=== PATIENT | male | born 1995 | race Caucasian/White ===

== ENCOUNTER 2021-10-20 16:54 | Emergency (ER) | payer SELFPAY ==
[2021-10-20] VITALS (7 sets, daily range): BP systolic 133–150; BP diastolic 75–99; PULSE 109–137; RESP 16–24; TEMP 37.1–39; O2SAT 95–98
--- NOTE | 2021-10-20 17:22 | ECG_ITS ---
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 Measurements Intervals [place] Rate: 140 P: 54 ME: 134 QRS: 34 QRSD: 75 T: 52 QT: 308 QTc: 471 Interpretive Statements SINUS TACHYCARDIA, POSSIBLE ATRIAL FLUTTER NONSPECIFIC T-WAVE ABNORMALITY ABNORMAL RHYTHM ECG No previous ECG available for comparison Electronically Signed On 10-20-2021 19:59:03 MORTGAGE LOAN CLOSER by Rene Herrera M.D. [id number]
--- NOTE | 2021-10-20 17:22 | XRR_ITS ---
PROCEDURE INFORMATION: Exam: XR Chest Exam date and time: 10/20/2021 5:22 PM Age: 26 years old Clinical indication: Other: Rapid heart rate; Additional info: Dyspnea/cough, rapid heart rate since 10am, 102 fever TECHNIQUE: Imaging protocol: XR of the chest. Views: 1 view. COMPARISON: No relevant prior studies available. FINDINGS: Lungs: No consolidation. Pleural spaces: No pleural effusion. No pneumothorax. Heart/Mediastinum: No cardiomegaly. Bones/joints: Unremarkable. XR/XR chest 1V portable [id number] IMPRESSION: No acute abnormality demonstrated.
--- NOTE | 2021-10-20 17:25 | W.ED.ARRPALP ---
Documented by User: Con Reaves DO 10/20/21 17:30 HPI - Arrhythmia/Palpitations General: Chief Complaint: Arrhythmia/Palpitations Stated Complaint: ANXIETY/ PANIC ATTACK Time Seen by Provider: 10/20/21 16:56 History of Present Illness: HPI narrative: 6-year-old male presents to the emergency room with a rapid heart rate. He has had chills fever generally not felt well myalgias. Patient admits to regular drinking up to a case per day. This all began around 1030 this morning. His has been sick as well she tested positive for strep but was not tested for COVID. He denies any diarrhea no cough or shortness of breath no chest pain no abdominal pain no dysuria urgency or frequency denies any abscess boils or skin lesions. MD complaint: rapid heart beat and heart racing Onset (ago): hour(s) Duration: constant Severity: mild Associated symptoms: Reports anxiety and muscle cramps; Deny cough, diaphoresis, nausea, paresthesias, pre-syncope, sense of impending doom, short of breath, syncope or vomiting Review of Systems Const: Denies: diaphoresis ENMT: Denies: throat pain, ear or mastoid pain, nasal discharge or nasal congestion Card: Denies: syncope or pre-syncope Resp: Denies: dyspnea, productive cough or non-productive cough GI: Denies: nausea or vomiting : Denies: flank pain, dysuria, urinary frequency or urinary urgency Musc: Reports: muscle cramps Skin/Breast: Denies: rash or pruritus Psych: Reports: anxiety PFS ED PFSH: Medical History Alcohol abuse Surgical History No significant past surgical history Social History Smoking and tobacco status: never smoked Alcohol intake: current Alcohol intake frequency: 3 or more drinks per day Alcohol type: beer Physical Exam Const: COMMON NORMALS: no acute distress GENERAL APPEARANCE: cooperative and comfortable ORIENTATION/CONSCIOUSNESS: Yes awake, Yes oriented to person, Yes oriented to place and Yes oriented to time HENMT: COMMON NORMALS: normocephalic, atraumatic and hearing grossly normal bilaterally HEAD & SCALP: normocephalic and atraumatic Neck/C-Spine: COMMON NORMALS: no JVD Resp: COMMON NORMALS: normal respiratory effort, No retractions, No use of accessory muscles and clear to auscultation bilaterally AUSCULTATION: clear to auscultation bilaterally Cardio: COMMON NORMALS: no JVD, regular rate, regular rhythm and No murmurs present (Cardio) RATE: regular rate RHYTHM: regular rhythm GI: COMMON NORMALS: Soft to palpation and No hepatosplenomegaly present AUSCULTATION: Yes normoactive bowel sounds PALPATION: Yes Soft to palpation, No Tenderness to palpation present (GI), No Guarding due to palpation present (GI) and Yes No hepatosplenomegaly present Extremity: COMMON NORMALS: normal to inspection, capillary refill normal, no clubbing, cyanosis or edema, no calf tenderness and no pedal edema Neuro: SENSORIUM/ORIENTATION: Yes oriented to person, Yes oriented to place and Yes oriented to time Skin: COMMON NORMALS: no rashes or lesions noted GENERAL SKIN EXAM: no rashes or lesions noted Course Vital Signs: Vital signs: Vital Signs Temperature 98.7 F 10/20/21 22:14 Pulse Rate 109 H 10/20/21 22:14 Respiratory Rate 16 10/20/21 22:14 Blood Pressure 135/80 10/20/21 22:14 Pulse Oximetry 95 10/20/21 22:14 MDM - Arrhythmia/Palpitations Lab Data: Labs: Lab Results 10/20/21 10/20/21 10/20/21 16:09 16:09 16:09 WBC 10.9 10^3/uL H 10 ^3/uL (4.0-10.0) RBC 4.97 10^6/uL 10^6 /uL (4.1-5.3) Hgb 16.3 g/dL g/dL (11.7-16.6) Hct 45.9 % % (42.0-52.0) MCV 92.4 fl fl (80-94) MCH 32.8 pg pg (28.0-34.0) MCHC 35.5 g/dL g/dL (30.0-36.0) RDW 12.5 % % (12.1-15.1) Plt Count 263 10^3/cmm 10^3 /cmm (130-400) MPV 10.2 fL fL (7.4-10.4) Neut % (Auto) 81.2 % % Lymph % (Auto) 4.1 % % [place] % (Auto) 13.3 % % Eos % (Auto) 0.2 % % Baso % (Auto) 0.8 % % Neut # (Auto) 8.85 10^3/uL H 10 ^3/uL (1.8-7.7) Lymph # (Auto) 0.5 10^3/uL L 10^ 3/uL (0.8-4.8) [place] # (Auto) 1.5 10^3/uL H 10^ 3/uL (0.2-0.9) Eos # (Auto) 0.0 10^3/uL 10^3/ uL (0.0-0.8) Baso # (Auto) 0.1 10^3/uL 10^3/ uL (0.0-0.1) Nucleated RBC % (a uto) 0 % % Nucleated RBCs # 0.0 /100WBC /100W BC D-Dimer Sodium 133 mmol/L L mmol /L (136-145) Potassium 3.7 mmol/L mmol/L (3.5-5.1) Chloride 92 mmol/L L mmol/ L (98-107) Carbon Dioxide 19 mmol/L L mmol/ L (22-29) Anion Gap 25.7 H (5-19) BUN 11 mg/dL mg/dL (6-20) Creatinine 1.0 mg/dL mg/dL (0.7-1.2) GFR Calculation 89.0 mL/min L mL/ min (90-130) Glucose 100 mg/dL mg/dL (65-115) Calculated Osmolal ity 275 mOsm/kg L mOs m/kg (285-295) Lactic Acid Calcium 9.4 mg/dL mg/dL (8.5-10.5) Magnesium 1.4 mg/dL L mg/dL (1.7-2.3) Total Bilirubin 0.6 mg/dL mg/dL (0.15-1.2) AST 166 U/L H U/L (0-40) ALT 90 U/L H U/L (0-41) Alkaline Phosphata se 109 IU/L IU/L (40-130) Troponin T Baselin e 6 ng/L ng/L (0-15) Troponin T 120 Min [place] Troponin T Total Protein 7.8 g/dL g/dL (6.6-8.7) Albumin 4.6 g/dL g/dL (3.5-5.2) Globulin 3.2 g/dL g/dL (1.3-4.6) TSH Urine Color Urine Appearance Urine pH Ur Specific Gravit y Urine Protein Urine Glucose (UA) Urine Ketones Urine Blood Urine Nitrate Urine Bilirubin Urine Urobilinogen Ur Leukocyte [place] Coronavirus 229E ( PCR) SARS-CoV-2 (PCR) SARS-CoV-2 RNA (RT -PCR) 10/20/21 10/20/21 10/20/21 16:09 16:09 17:47 WBC RBC Hgb Hct MCV MCH MCHC RDW Plt Count MPV Neut % (Auto) Lymph % (Auto) [place] % (Auto) Eos % (Auto) Baso % (Auto) Neut # (Auto) Lymph # (Auto) [place] # (Auto) Eos # (Auto) Baso # (Auto) Nucleated RBC % (a uto) Nucleated RBCs # D-Dimer 0.31 ug/mIFEU ug/ mIFEU (0-0.59) Sodium Potassium Chloride Carbon Dioxide Anion Gap BUN Creatinine GFR Calculation Glucose Calculated Osmolal ity Lactic Acid 1.0 mmol/L mmol/L (0.5-2.2) Calcium Magnesium Total Bilirubin AST ALT Alkaline Phosphata se Troponin T Baselin e Troponin T 120 Min [place] Troponin T Total Protein Albumin Globulin TSH 0.94 uIU/mL uIU/m L (0.27-4.20) Urine Color Urine Appearance Urine pH Ur Specific Gravit y Urine Protein Urine Glucose (UA) Urine Ketones Urine Blood Urine Nitrate Urine Bilirubin Urine Urobilinogen Ur Leukocyte [place] Coronavirus 229E ( PCR) SARS-CoV-2 (PCR) SARS-CoV-2 RNA (RT -PCR) 10/20/21 10/20/21 10/20/21 17:47 17:47 18:08 WBC RBC Hgb Hct MCV MCH MCHC RDW Plt Count MPV Neut % (Auto) Lymph % (Auto) [place] % (Auto) Eos % (Auto) Baso % (Auto) Neut # (Auto) Lymph # (Auto) [place] # (Auto) Eos # (Auto) Baso # (Auto) Nucleated RBC % (a uto) Nucleated RBCs # D-Dimer Sodium Potassium Chloride Carbon Dioxide Anion Gap BUN Creatinine GFR Calculation Glucose Calculated Osmolal ity Lactic Acid Calcium Magnesium Total Bilirubin AST ALT Alkaline Phosphata se Troponin T Baselin e Troponin T 120 Min [place] Troponin T Total Protein Albumin Globulin TSH Urine Color Yellow (Yellow) Urine Appearance Clear (CLEAR) Urine pH 5 (5-7) Ur Specific Gravit y 1.020 (1.005-1.030) Urine Protein Neg (Negative) Urine Glucose (UA) Norm (Normal) Urine Ketones 2+ H (Negative) Urine Blood Neg (Negative) Urine Nitrate Negative (Negative) Urine Bilirubin Neg (Negative) Urine Urobilinogen Norm mg/dL mg/dL (Negative) Ur Leukocyte [place] Negative (Negative) Coronavirus 229E ( PCR) Not detected (NOT DETECT) SARS-CoV-2 (PCR) Detected A (NOT DETECT) SARS-CoV-2 RNA (RT -PCR) Cancelled 10/20/21 18:38 WBC RBC Hgb Hct MCV MCH MCHC RDW Plt Count MPV Neut % (Auto) Lymph % (Auto) [place] % (Auto) Eos % (Auto) Baso % (Auto) Neut # (Auto) Lymph # (Auto) [place] # (Auto) Eos # (Auto) Baso # (Auto) Nucleated RBC % (a uto) Nucleated RBCs # D-Dimer Sodium Potassium Chloride Carbon Dioxide Anion Gap BUN Creatinine GFR Calculation Glucose Calculated Osmolal ity Lactic Acid Calcium Magnesium Total Bilirubin AST ALT Alkaline Phosphata se Troponin T Baselin e Troponin T 120 Min [place] 6.66 ng/L ng/L (0-15) [place] Troponin T 0.66 ABS# ABS# (0-10) Total Protein Albumin Globulin TSH Urine Color Urine Appearance Urine pH Ur Specific Gravit y Urine Protein Urine Glucose (UA) Urine Ketones Urine Blood Urine Nitrate Urine Bilirubin Urine Urobilinogen Ur Leukocyte [place] Coronavirus 229E ( PCR) SARS-CoV-2 (PCR) SARS-CoV-2 RNA (RT -PCR) Discharge Plan Discharge Patient Disposition: Home Clinical Impression: Palpitations, Sinus tachycardia, Dehydration, Hypomagnesemia, Alcohol abuse, Fever Condition: Stable Prescriptions: No Action amoxicillin-pot clavulanate 875-125 mg tablet 1 tab PO BID 10 Days Qty: 20 RF: 0 Discharge Orders: Discharge ED (Routine); Ordered 10/20/21 Ordered By: Jarret Brian Discharge Diet: Usual diet Discharge Activity: Resume usual activity Patient Instructions: Dehydration (ED), Alcohol Use Disorder (ED), Tachycardia (ED), Opioid Safety Activity Restrictions/Additional Instructions: Thank you for visiting the emergency department. You were seen and evaluated for palpitations and rapid heart rate as well as feeling anxious. The exact cause of your symptoms is unclear. Laboratory studies did show mild elevation in the white blood cell count which is nonspecific though often associated with infection. This may be due to COVID-19 or other infection. A COVID-19 is pending at time of discharge. Electrolytes revealed moderate evidence of dehydration which likely will be improved with IV fluids. We are pleased that you feel improved. Please follow-up with your primary care provider. Please follow-up with cardiology, I messaged case management to assist with scheduling an appointment. Return to the emergency department for worsening symptoms or anything else that you're concerned about and feel needs emergency department evaluation. Stand Alone Forms: Work/School Release Sign Out Sign Out Data: Patient Sign Out occurred on 10/20/21 at 18:27. Patient's care was discussed, and care was transferred from to Jarret Brian MD. Post-Handoff Eval: See MDM. Coding Level of Care Code ED Retail Analytics Manager for Chg Fwd Exam Comprehensive Documented by User: Jarret Brian MD 10/29/21 07:38 HPI - Arrhythmia/Palpitations General: Chief Complaint: Arrhythmia/Palpitations Stated Complaint: ANXIETY/ PANIC ATTACK Time Seen by Provider: [facility]20[facility]21 [facility] Medical History Alcohol abuse Surgical History No significant past surgical history Social History Smoking and tobacco status: never smoked Alcohol intake: current Alcohol intake frequency: 3 or more drinks per day Alcohol type: beer Course Vital Signs: Vital signs: Vital Signs Temperature 98.7 F 10/20/21 22:14 Pulse Rate 109 H 10/20/21 22:14 Respiratory Rate 16 10/20/21 22:14 Blood Pressure 135/80 10/20/21 22:14 Pulse Oximetry 95 10/20/21 22:14 MDM - Arrhythmia/Palpitations MDM Narrative: Medical decision making narrative: Patient care handoff received from ED physician Dr. Reaves pending completion of ED evaluation and assessment of response to treatment. Laboratory studies notable for mild leukocytosis. Metabolic panel with derangements consistent with dehydration. Despite anion gap and low bicarb glucose is normal, low clinical suspicion for conditions such as DKA. I believe that the patient's urine ketones are likely secondary to alcoholic ketosis or dehydration. Magnesium is low. Transaminitis likely secondary to reported alcohol use. No right upper quadrant specific tenderness or jaundice. Patient treated with 2 L IV fluid, Tylenol, and magnesium replenishment. Fever resolved. Patient subjectively feels significantly improved. Patient remained tachycardic however. I discussed possible disposition options, patient desires discharge and I will message case management for cardiology follow-up for inappropriate tachycardia. Troponin and delta troponin negative. D-dimer negative. EKG consistent with sinus tachycardia. The results of ED evaluation were discussed with the patient including prescriptions and/or symptomatic cares (if applicable) including appropriate and responsible use, followup plan, and return precautions. The patient verbalized understanding and felt safe for discharge. Patient discharged in satisfactory condition. Lab Data: Labs: Lab Results 10/20/21 10/20/21 10/20/21 16:09 16:09 16:09 WBC 10.9 10^3/uL H 10 ^3/uL (4.0-10.0) RBC 4.97 10^6/uL 10^6 /uL (4.1-5.3) Hgb 16.3 g/dL g/dL (11.7-16.6) Hct 45.9 % % (42.0-52.0) MCV 92.4 fl fl (80-94) MCH 32.8 pg pg (28.0-34.0) MCHC 35.5 g/dL g/dL (30.0-36.0) RDW 12.5 % % (12.1-15.1) Plt Count 263 10^3/cmm 10^3 /cmm (130-400) MPV 10.2 fL fL (7.4-10.4) Neut % (Auto) 81.2 % % Lymph % (Auto) 4.1 % % [place] % (Auto) 13.3 % % Eos % (Auto) 0.2 % % Baso % (Auto) 0.8 % % Neut # (Auto) 8.85 10^3/uL H 10 ^3/uL (1.8-7.7) Lymph # (Auto) 0.5 10^3/uL L 10^ 3/uL (0.8-4.8) [place] # (Auto) 1.5 10^3/uL H 10^ 3/uL (0.2-0.9) Eos # (Auto) 0.0 10^3/uL 10^3/ uL (0.0-0.8) Baso # (Auto) 0.1 10^3/uL 10^3/ uL (0.0-0.1) Nucleated RBC % (a uto) 0 % % Nucleated RBCs # 0.0 /100WBC /100W BC D-Dimer Sodium 133 mmol/L L mmol /L (136-145) Potassium 3.7 mmol/L mmol/L (3.5-5.1) Chloride 92 mmol/L L mmol/ L (98-107) Carbon Dioxide 19 mmol/L L mmol/ L (22-29) Anion Gap 25.7 H (5-19) BUN 11 mg/dL mg/dL (6-20) Creatinine 1.0 mg/dL mg/dL (0.7-1.2) GFR Calculation 89.0 mL/min L mL/ min (90-130) Glucose 100 mg/dL mg/dL (65-115) Calculated Osmolal ity 275 mOsm/kg L mOs m/kg (285-295) Lactic Acid Calcium 9.4 mg/dL mg/dL (8.5-10.5) Magnesium 1.4 mg/dL L mg/dL (1.7-2.3) Total Bilirubin 0.6 mg/dL mg/dL (0.15-1.2) AST 166 U/L H U/L (0-40) ALT 90 U/L H U/L (0-41) Alkaline Phosphata se 109 IU/L IU/L (40-130) Troponin T Baselin e 6 ng/L ng/L (0-15) Troponin T 120 Min [place] Troponin T Total Protein 7.8 g/dL g/dL (6.6-8.7) Albumin 4.6 g/dL g/dL (3.5-5.2) Globulin 3.2 g/dL g/dL (1.3-4.6) TSH Urine Color Urine Appearance Urine pH Ur Specific Gravit y Urine Protein Urine Glucose (UA) Urine Ketones Urine Blood Urine Nitrate Urine Bilirubin Urine Urobilinogen Ur Leukocyte [place] Coronavirus 229E ( PCR) SARS-CoV-2 (PCR) SARS-CoV-2 RNA (RT -PCR) 10/20/21 10/20/21 10/20/21 16:09 16:09 17:47 WBC RBC Hgb Hct MCV MCH MCHC RDW Plt Count MPV Neut % (Auto) Lymph % (Auto) [place] % (Auto) Eos % (Auto) Baso % (Auto) Neut # (Auto) Lymph # (Auto) [place] # (Auto) Eos # (Auto) Baso # (Auto) Nucleated RBC % (a uto) Nucleated RBCs # D-Dimer 0.31 ug/mIFEU ug/ mIFEU (0-0.59) Sodium Potassium Chloride Carbon Dioxide Anion Gap BUN Creatinine GFR Calculation Glucose Calculated Osmolal ity Lactic Acid 1.0 mmol/L mmol/L (0.5-2.2) Calcium Magnesium Total Bilirubin AST ALT Alkaline Phosphata se Troponin T Baselin e Troponin T 120 Min [place] Troponin T Total Protein Albumin Globulin TSH 0.94 uIU/mL uIU/m L (0.27-4.20) Urine Color Urine Appearance Urine pH Ur Specific Gravit y Urine Protein Urine Glucose (UA) Urine Ketones Urine Blood Urine Nitrate Urine Bilirubin Urine Urobilinogen Ur Leukocyte [place] Coronavirus 229E ( PCR) SARS-CoV-2 (PCR) SARS-CoV-2 RNA (RT -PCR) 10/20/21 10/20/21 10/20/21 17:47 17:47 18:08 WBC RBC Hgb Hct MCV MCH MCHC RDW Plt Count MPV Neut % (Auto) Lymph % (Auto) [place] % (Auto) Eos % (Auto) Baso % (Auto) Neut # (Auto) Lymph # (Auto) [place] # (Auto) Eos # (Auto) Baso # (Auto) Nucleated RBC % (a uto) Nucleated RBCs # D-Dimer Sodium Potassium Chloride Carbon Dioxide Anion Gap BUN Creatinine GFR Calculation Glucose Calculated Osmolal ity Lactic Acid Calcium Magnesium Total Bilirubin AST ALT Alkaline Phosphata se Troponin T Baselin e Troponin T 120 Min [place] Troponin T Total Protein Albumin Globulin TSH Urine Color Yellow (Yellow) Urine Appearance Clear (CLEAR) Urine pH 5 (5-7) Ur Specific Gravit y 1.020 (1.005-1.030) Urine Protein Neg (Negative) Urine Glucose (UA) Norm (Normal) Urine Ketones 2+ H (Negative) Urine Blood Neg (Negative) Urine Nitrate Negative (Negative) Urine Bilirubin Neg (Negative) Urine Urobilinogen Norm mg/dL mg/dL (Negative) Ur Leukocyte [place] Negative (Negative) Coronavirus 229E ( PCR) Not detected (NOT DETECT) SARS-CoV-2 (PCR) Detected A (NOT DETECT) SARS-CoV-2 RNA (RT -PCR) Cancelled 10/20/21 18:38 WBC RBC Hgb Hct MCV MCH MCHC RDW Plt Count MPV Neut % (Auto) Lymph % (Auto) [place] % (Auto) Eos % (Auto) Baso % (Auto) Neut # (Auto) Lymph # (Auto) [place] # (Auto) Eos # (Auto) Baso # (Auto) Nucleated RBC % (a uto) Nucleated RBCs # D-Dimer Sodium Potassium Chloride Carbon Dioxide Anion Gap BUN Creatinine GFR Calculation Glucose Calculated Osmolal ity Lactic Acid Calcium Magnesium Total Bilirubin AST ALT Alkaline Phosphata se Troponin T Baselin e Troponin T 120 Min [place] 6.66 ng/L ng/L (0-15) [place] Troponin T 0.66 ABS# ABS# (0-10) Total Protein Albumin Globulin TSH Urine Color Urine Appearance Urine pH Ur Specific Gravit y Urine Protein Urine Glucose (UA) Urine Ketones Urine Blood Urine Nitrate Urine Bilirubin Urine Urobilinogen Ur Leukocyte [place] Coronavirus 229E ( PCR) SARS-CoV-2 (PCR) SARS-CoV-2 RNA (RT -PCR) Discharge Plan Discharge Patient Disposition: Home Clinical Impression: Palpitations, Sinus tachycardia, Dehydration, Hypomagnesemia, Alcohol abuse, Fever Condition: Stable Prescriptions: No Action amoxicillin-pot clavulanate 875-125 mg tablet 1 tab PO BID 10 Days Qty: 20 RF: 0 Discharge Orders: Discharge ED (Routine); Ordered 10/20/21 Ordered By: Jarret Brian Discharge Diet: Usual diet Discharge Activity: Resume usual activity Patient Instructions: Dehydration (ED), Alcohol Use Disorder (ED), Tachycardia (ED), Opioid Safety Activity Restrictions/Additional Instructions: Thank you for visiting the emergency department. You were seen and evaluated for palpitations and rapid heart rate as well as feeling anxious. The exact cause of your symptoms is unclear. Laboratory studies did show mild elevation in the white blood cell count which is nonspecific though often associated with infection. This may be due to COVID-19 or other infection. A COVID-19 is pending at time of discharge. Electrolytes revealed moderate evidence of dehydration which likely will be improved with IV fluids. We are pleased that you feel improved. Please follow-up with your primary care provider. Please follow-up with cardiology, I messaged case management to assist with scheduling an appointment. Return to the emergency department for worsening symptoms or anything else that you're concerned about and feel needs emergency department evaluation. Stand Alone Forms: Work/School Release Sign Out Sign Out Data: Patient Sign Out occurred on 10/20/21 at 18:27. Patient's care was discussed, and care was transferred from to Jarret Brian MD. Post-Handoff Eval: See MDM. Coding Level of Care Code ED Retail Analytics Manager for Stalin Fwd Exam Comprehensive
[2021-10-20 17:46] LABS: Basophils # 0.1 10^3/uL (0.0-0.1); Basophils % 0.8 %; Eosinophils % 0.2 %; Hematocrit 45.9 % (42.0-52.0); Hemoglobin 16.3 g/dL (11.7-16.6); Lymphocytes # 0.5 10^3/uL (0.8-4.8); Lymphocytes % 4.1 %; Mean Corpuscular HGB Conc 35.5 g/dL (30.0-36.0); Mean Corpuscular Hemoglobin 32.8 pg (28.0-34.0); Mean Corpuscular Volume 92.4 fl (80-94); Mean Platelet Volume 10.2 fL (7.4-10.4); Monocytes # 1.5 10^3/uL (0.2-0.9); Monocytes % 13.3 %; Neutrophils # 8.85 10^3/uL (1.8-7.7); Neutrophils % 81.2 %; Nucleated Red Blood Cells % 0 %; Platelet Count 263 10^3/cmm (130-400); Red Blood Count 4.97 10^6/uL (4.1-5.3); Red Cell Distribution Width 12.5 % (12.1-15.1); White Blood Count 10.9 10^3/uL (4.0-10.0)
[2021-10-20] MEDS: sodium chloride 0.9% 1,000 ML 999 ML IV ×2 (17:55→19:32)
[2021-10-20 18:24] LABS: Add Urine Microscopic? NO
[2021-10-20 18:25] LABS: Bilirubin Urine Neg (Negative); Blood Urine Neg (Negative); Charge for UA Resulting for Rev; Glucose Urine UA Norm (Normal); Ketones Urine 2+ (Negative); Leukocyte Esterase Urine Negative (Negative); Nitrate Urine Negative (Negative); Protein Urine Neg (Negative); Urine Appearance Clear (CLEAR); Urine Color Yellow (Yellow); Urobilinogen Urine Norm (Negative); pH Urine 5 (5-7)
[2021-10-20 18:32] LABS: Troponin(5th) Baseline 6 ng/L (0-15)
[2021-10-20 18:33] LABS: Alanine Aminotransferase 90 U/L (0-41); Albumin Level 4.6 g/dL (3.5-5.2); Alkaline Phosphatase 109 IU/L (40-130); Anion Gap 25.7 (5-19); Aspartate Amino Transferase 166 U/L (0-40); Blood Urea Nitrogen 11 mg/dL (6-20); Calcium 9.4 mg/dL (8.5-10.5); Carbon Dioxide 19 mmol/L (22-29); Chloride 92 mmol/L (98-107); Globulin 3.2 g/dL (1.3-4.6); Glucose 100 mg/dL (65-115); Magnesium 1.4 mg/dL (1.7-2.3); Osmolality Calculated 275 mOsm/kg (285-295); Potassium 3.7 mmol/L (3.5-5.1); Sodium 133 mmol/L (136-145); Total Bilirubin 0.6 mg/dL (0.15-1.2); Total Protein 7.8 g/dL (6.6-8.7)
[2021-10-20 19:07] LABS: Troponin 5 2HR 6.66 ng/L (0-15); Troponin 5 2HR Delta 0.66 ABS# (0-10)
[2021-10-20 19:30] LABS: D Dimer 0.31 ug/mIFEU (0-0.59)
[2021-10-20] MEDS: magnesium sulfate premix 2 GM/50 ML PIGGYBACK IV (19:31)
[2021-10-20] MEDS: acetaminophen 500 mg Tablet 1000 MG PO (19:31)
[2021-10-20 19:41] LABS: Thyroid Stimulating Hormone 0.94 uIU/mL (0.27-4.20)
[2021-10-21 01:19] LABS: Coronavirus 229E,HKU1,NL63,OC4 Not Detected (NOT DETECT); SARS-COV-2 Detected (NOT DETECT)
[2021-10-21 01:20] LABS: Adenovirus Not Detected (NOT DETECT); Chlamydia Pneumoniae Not Detected (NOT DETECT); Human Metapneumovirus Not Detected (NOT DETECT); Human Rhinovirus/Enterovirus Not Detected (NOT DETECT); Influenza A Not Detected (NOT DETECT); Influenza A H1 Not Detected (NOT DETECT); Influenza A H1-2009 Not Detected (NOT DETECT); Influenza A H3 Not Detected (NOT DETECT); Influenza B Not Detected (NOT DETECT); Mycoplasma Pneumoniae Not Detected (NOT DETECT); Parainfluenza Virus Type 1 Not Detected (NOT DETECT); Parainfluenza Virus Type 2 Not Detected (NOT DETECT); Parainfluenza Virus Type 3 Not Detected (NOT DETECT); Parainfluenza Virus Type 4 Not Detected (NOT DETECT); Respiratory Syncytial Virus A Not Detected (NOT DETECT); Respiratory Syncytial Virus B Not Detected (NOT DETECT)
--- NOTE | 2021-10-22 08:59 | PC.NURSE ---
Attempt to contact pt . Voice mail is Full.
--- NOTE | 2021-10-22 10:13 | DCPLANNER ---
Addendum entered by Senait Abreu 12/03/21 11:25: Patient had a follow up appointment scheduled for 11.23.21 with [facility] - patient did not attend appointment. Addendum entered by Senait Abreu 11/11/21 16:23: Patient had a follow up appointment scheduled with [facility] for 11.10.21, this appointment was rescheduled for 11.23.21. Original Note: senior case manager had message to schedule a follow up appointment for patient with [facility]. senior case manager called [facility], spoke with Rosmery Johnson, gave clinic patients information. A follow up appointment was scheduled for Wednesday, November 10, 2021 at 1:[address] English. senior case manager spoke with patient and gave him the appointment information.
--- NOTE | 2021-10-22 17:03 | PC.NURSE ---
Notified of COVID (+)
== END 2021-10-20 22:16 | disposition home or self-care (01) ==
PROVIDERS: Family Medicine; Emergency Provider Emergency Medicine
DX: R00.2 Palpitations (principal); R00.0 Tachycardia, unspecified; U07.1 COVID-19; E86.0 Dehydration; E83.42 Hypomagnesemia; F10.10 Alcohol abuse, uncomplicated
CPT/HCPCS: 36415; 71045; 80053; 81003; 83605; 83735; 84443; 84484; 85025; 85378; 87040; 87635; 93005; 96361; 96365; 99284; J3475; J7030

== ENCOUNTER 2024-04-08 16:37 | Emergency (ER) | payer SELFPAY ==
[2024-04-08 16:43] VITALS: BP 149/103; PULSE 97; RESP 16; TEMP 36.8; O2SAT 97; BMI 24.3
--- NOTE | 2024-04-08 17:01 | W.ED.PSYCHS ---
HPI - Psych General: Chief Complaint: Psychiatric Symptoms Stated Complaint: SI Time Seen by Provider: 04/08/24 16:43 History of Present Illness: Patient reports to the emergency room hoping to get medical help with alcohol abuse. He is not currently in withdrawals. Vitals are normal. He says he wants to check in someplace where he can get medical help. We discussed that we do not have a program for that here. If he wants to do outpatient there is a program that he is aware of here in town. Currently no altered mental status. No shaking. And again his vitals are normal. Review of Systems Narrative: Constitutional symptoms: Negative except as documented in HPI. Skin symptoms: Negative except as documented in HPI. Eye symptoms: Negative except as documented in HPI. ENMT symptoms: Negative except as documented in HPI. Respiratory symptoms: Negative except as documented in HPI. Cardiovascular symptoms: Negative except as documented in HPI. Gastrointestinal symptoms: Negative except as documented in HPI. Genitourinary symptoms: Negative except as documented in HPI. Musculoskeletal symptoms: Negative except as documented in HPI. Neurologic symptoms: Negative except as documented in HPI. Psychiatric symptoms: Negative except as documented in HPI. Endocrine symptoms: Negative except as documented in HPI. PFSH ED PFSH: Medical History Alcohol abuse Surgical History No significant past surgical history Social History Smoking and tobacco/nicotine status: never used tobacco/nicotine Alcohol intake: current Alcohol intake frequency: 3 or more drinks per day Alcohol type: beer Physical Exam Narrative: EXAM NARRATIVE: General: Alert, no acute distress. Skin: Warm, dry. Head: Normocephalic, atraumatic. Neck: Supple, trachea midline. Eye: Extraocular movements are intact. Ears, nose, mouth and throat: mucosa moist. Cardiovascular: Regular, Normal peripheral perfusion. Respiratory: Lungs are clear to auscultation, respirations are non-labored, breath sounds are equal, Symmetrical chest wall expansion. Gastrointestinal: Soft, Nontender, Non distended Musculoskeletal: Normal ROM, no deformity. Neurological: Alert and oriented, No focal neurological deficit observed. Psychiatric: Cooperative, appropriate mood & affect. Course Vital Signs: Vital signs: Vital Signs Temperature 98.3 F 04/08/24 16:43 Pulse Rate 97 04/08/24 16:43 Respiratory Rate 16 04/08/24 16:43 Blood Pressure 149/103 04/08/24 16:43 Pulse Oximetry 97 04/08/24 16:43 Oxygen Delivery Me thod Room Air 04/08/24 16:43 MDM - Psych Medical Decision Making Assessment and plan: Alcohol abuse and addiction -Patient provided with information on alcohol detox programs. - Discharged home - Discussed plan with patient. Answered any questions. - Evaluation and treatment of this problem were appropriate in the emergency setting. No radiology studies performed this visit Discharge Plan Discharge Patient Disposition: Home Clinical Impression: Alcohol abuse Condition: Stable Prescriptions: No Action amoxicillin-pot clavulanate 875-125 mg tablet 1 tab PO BID 10 Days Qty: 20 0RF Discharge Orders: Discharge ED (Routine); Ordered 04/08/24 Ordered By: Prudence Guallpa Discharge Diet: Usual diet Discharge Activity: Resume usual activity Patient Instructions: Opioid Safety, Pain Management Activity Restrictions/Additional Instructions: Please follow-up with an alcohol abuse program. If you are needing medical help the closest program to here is in [place]. Thank you for choosing [facility] for your healthcare needs today. Please realize this is an emergency room and that we are providing you with a medical screening exam and this may not be complete and all inclusive of all the testing and or work up that you may need to determine your ailment or severity of your illness. You have been screened and evaluated and felt safe for discharge. Health conditions do change or evolve sometimes and as such it is important that you follow up with your Primary Doctor to be re checked, 3-5 days is a general good time frame for follow up. 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
== END 2024-04-08 17:25 | disposition home or self-care (01) ==
PROVIDERS: Emergency Provider Emergency Medicine
DX: F10.10 Alcohol abuse, uncomplicated (principal)
CPT/HCPCS: 99281

== ENCOUNTER → 2024-06-05 09:37 | Outpatient (BNVA) | payer SELFPAY | PROVIDERS: Visit Provider Nurse Practitioner | DX: F10.10 Alcohol abuse, uncomplicated (principal); R10.9 Unspecified abdominal pain | CPT/HCPCS: 80053; 81000; 83036; 84443; 85025; 87086 ==

== ENCOUNTER 2024-06-12 09:45 | Outpatient (CLI) | payer SELFPAY ==
--- NOTE | 2024-06-12 09:48 | US_ITS ---
WS: [id number] Complete ABDOMINAL ULTRASOUND HISTORY: F10.10 - Alcohol abuse, uncomplicated COMPARISON: None available. Liver: 16.4 cm in length. Liver is normal size. Coarse echotexture throughout. Surface of the liver i s very slightly irregular suggesting early changes of cirrhosis. Portal Vein: Normal hepatopetal flow with monophasic waveform. Gallbladder: Normally distended gallbladder with no stones or wall thickening. CBD: 0.3 cm Pancreas: Poorly visualized. Right kidney: 9.3 cm x 3.9 x 3.8 cm. Cortex:0.9 cm. Normal size and echogenicity. No hydronephrosis or mass. Left kidney: 9.0 cm x 4.1 cm x 4.9 cm. Cortex: 1.1 cm. Normal size and echogenicity. No hydronephrosis or mass. Spleen: 10.2 cm. Normal size and echogenicity. Aorta and IVC: Unremarkable abdominal aorta and IVC. US/US abdomen complete* [id number] Impression: 1. Normal size liver with early changes of cirrhosis suspected. No mass. 2. Normal gallbladder. 3. Normal kidneys. 4. No ascites.
== END 2024-06-12 09:46 | disposition home or self-care (01) ==
PROVIDERS: Visit Provider Nurse Practitioner
DX: R10.9 Unspecified abdominal pain (principal); F10.10 Alcohol abuse, uncomplicated
CPT/HCPCS: 76700

== ENCOUNTER → 2024-09-10 14:42 | Outpatient (BNVA) | payer SELFPAY | PROVIDERS: PCP Nurse Practitioner; Visit Provider Nurse Practitioner | DX: I10 Essential (primary) hypertension (principal) | CPT/HCPCS: 84443 ==